=== PATIENT | male | born 1980 | race Caucasian/White ===

== ENCOUNTER 2024-04-14 11:28 | Emergency (ER) | payer OTHER, SELFPAY ==
[2024-04-14 11:28] VITALS: BMI 17.2
[2024-04-14 11:33] VITALS: BP 135/92
[2024-04-14 11:49] LABS: % Basophils 0.4 % (0-2); % Eosinophils 1.6 % (0-6); % Immature Granulocytes 0.3 % (0-0.5); % Lymphocytes 16.8 % (20.5-51.1); % Neutrophils 74.9 % (42.2-75.2); Absolute Eosinophils 0.2 10^3/uL (0-0.7); Absolute Lymphocytes 1.7 10^3/uL (1.2-3.4); Absolute Monocytes 0.6 10^3/uL (0.1-0.6); Absolute Neutrophils 7.6 10^3/uL (1.4-6.5); Hemoglobin 12.6 g/dL (13.0-18.0); Mean Corpuscular Hgb 31.3 pg (27.0-31.0); Mean Corpuscular Volume 89.3 fL (80.0-94.0); Mean Platelet Volume 9.7 fL (7.4-10.4); Nucleated Red Blood Cells % 0 % (-); Platelet Count 229 10^3/uL (130-400); Red Blood Cell Count 4.03 10^6/uL (4.70-6.10); Red Cell Dist. Width 12.5 % (11.5-14.5); White Blood Cell Count 10.2 10^3/uL (4.8-10.8)
[2024-04-14 12:06] LABS: ALT (SGPT) 18 U/L (0-50); AST (SGOT) 23 U/L (17-59); Alkaline Phosphatase 105 U/L (38-126); Blood Urea Nitrogen 11 mg/dl (9-20); Calcium 9.3 mg/dl (8.4-10.2); Carbon Dioxide 27 mmol/L (22-30); Chloride 102 mmol/L (98-107); Glucose 227 mg/dl (70-99); Potassium 4.2 mmol/L (3.5-5.1); Sodium 140 mmol/L (135-145); Total Bilirubin 0.4 mg/dl (0.2-1.3); Total Protein 6.4 g/dl (6.3-8.2); eGFR > 60.00
[2024-04-14 12:13] LABS: Troponin I < 0.012 ng/ml
[2024-04-14 12:31] VITALS: BP 151/80
[2024-04-14 12:35] VITALS: BP 151/80
[2024-04-14 13:02] VITALS: BP 116/71
[2024-04-14] MEDS: TORADOL 15 MG IV (13:09)
[2024-04-14 13:32] LABS: D-Dimer < 0.27 ug/mlFEU (0.00-0.50)
--- NOTE | 2024-04-14 14:35 | ED.GENMED ---
History of Present Illness
General
Chief Complaint: Breathing Problem
Source: patient
Exam Limitations: none
Time Seen by Provider: 04/14/24 12:38
Nursing documentation reviewed up to this point in time: agreed with
History of Present Illness
History of Present Illness:
43-year-old male with past medical history of insulin-dependent diabetes presents to the emergency room for evaluation of chest pain. Patient reports onset of symptoms about 4 days ago and have been constant since that time. He reports pain in the
left chest wall radiates towards the center. It is worse when he moves and it is worse with palpation. It is worse when he coughs or takes deep breath. He says that today pain was bad enough that he felt short of breath and so he came to the ER
to be evaluated. He says he has had rib fractures in the past on the left side and says that it felt similar although he denies any trauma. 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 He has had mild cough
recently. Nonproductive. No fevers or chills. No other complaints.
Past History
Past History
ED Past Medical History: IDDM
ED Past Surgical History: None
Social History
Tobacco: Smoker
Alcohol: Occasional
Drug: None
Personal:
Living: with family
Family History
Family History: Other (Diabetes, previous [place])
Review of Systems
Review of Systems
All Other Systems: ROS reviewed and negative except as documented in HPI and ROS
Constitutional: Denies fever or chills
Respiratory: Reports cough and trouble breathing
Cardiac: Reports chest pain; Denies diaphoresis or palpitations
ABD/GI: Denies abdominal pain, nausea or vomiting
: Denies flank pain
Musculoskeletal: Denies edema, neck pain or back pain
Neurological: Denies dizzy or headache
Phy Exam
Physical Exam
Physical Exam:
General: Awake, alert, oriented x3; no acute distress
Head: Normocephalic, atraumatic
Eyes: Conjunctiva normal, sclera anicteric
Throat: Airway intact, handling secretions
Neck: Trachea midline, supple without meningismus
Lungs: Clear to auscultation bilaterally, no wheezing, rales, rhonchi
Heart: Regular rate and rhythm, no murmurs, gallops, or rubs; reproducible rib tenderness left ribs 7 and 8 anterior axillary line
Abd: Soft, non distended, nontender
Neuro: No gross deficits
Skin: no rash
Extremities: No edema in extremities, equal pulses in all extremities
Scores
Heart Failure Risk
Heart Failure Risk Score: Not Applicable
Heart Score for Chest Pain Patients
STEMI patient?: Not applicable
Withdrawal Assessment of Alcohol
Withdrawal Assessment Completed?: Not applicable
Course
Orders/Labs/Results
Orders:
Orders
04/14/24 11:29
Electrocardiogram (*1) Urgent
Reason for Study: Shortness of Breath
EKG- Treatment ONCE
04/14/24 11:41
Complete Blood Count/With Diff Urgent
Comprehensive Metabolic Panel Urgent
Troponin I Urgent
04/14/24 12:39
CR Chest - 2 Views Urgent
Comment:
Reason For Exam: sob, chest pain
04/14/24 12:46
Ketorolac [Toradol] 15 mg IV NOW STA
04/14/24 13:03
D-Dimer Urgent
Abnormal Lab Results
04/14/24
11:41
RBC 4.03 L 10^6/uL
(4.70-6.10)
Hgb 12.6 L g/dL
(13.0-18.0)
Hct 36.0 L %
(39.0-52.0)
MCH 31.3 H pg
(27.0-31.0)
Absolute Neuts (auto) 7.6 H 10^3/uL
(1.4-6.5)
Lymphocytes % 16.8 L %
(20.5-51.1)
Glucose 227 H mg/dl
(70-99)
04/14/24 11:41
04/14/24 11:41
Vital Signs
Initial and Last Documented VS:
Initial Vital Signs
Temp Pulse Resp BP Pulse Ox
36.4 C 87 20 135/92 100
04/14/24 11:33 04/14/24 11:33 04/14/24 11:33 04/14/24 11:33 04/14/24 11:33
Last Documented Vital Signs
Temp Pulse Resp BP Pulse Ox
36.8 C 68 16 151/80 99
04/14/24 12:35 04/14/24 12:35 04/14/24 12:35 04/14/24 12:35 04/14/24 12:38
MDM/Problems Addressed
Differential Diagnosis Includes:
Costochondritis, rib fracture, pneumothorax, pneumonia, bronchitis, PE, ACS considered less likely clinically
MDM/Problems Addressed:
43-year-old male presents for evaluation of left-sided chest/rib pain as described above. Ongoing for 4 days. Denies any specific trauma but does do regular heavy lifting. Hypertensive but otherwise normal vitals. Physical exam as above.
Notably reproducible chest wall tenderness in the area of complaint. No rash. EKG in triage shows no STEMI or acute ischemic changes. He had lab work sent in triage including a CBC which showed marginal anemia. He had a CMP which showed
hyperglycemia in the setting of known diabetes�he has has insulin pump. His troponin was undetectable. Added D-dimer. Check chest x-ray. Reassess after the above.
D-dimer negative. Chest x-ray shows no acute disease�no pneumothorax, no visual rib fractures. Patient was treated with Toradol had some improvement. Could be minor nondisplaced rib fracture/occult fracture versus costochondritis�my clinician is
more towards costochondritis given lack of traumatic injury. Stable for discharge will trial NSAIDs. Patient comfortable to this. All questions answered.
*Radiology
Radiology exam reviewed: radiology read reviewed
*Pulse Oximetry
Patient hypoxic: no
*EKG
Interpreted by ED Provider?: Yes
Heart Rate: 76
Rate: normal
Rhythm: sinus
[place]: normal axis
Interval: normal interval
QRS Pattern: normal QRS
Ischemia: no ischemia
*Critical Care Note
Total Time (30-74mins, 75-104mins- exclusive of procedures): Not Applicable
Data Reviewed
Source: patient and records
Further Testing Considered But Not Given:
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
ED Attending Note
-
Portions of this chart may have been created with voice recognition software.� Occasional wrong word or��sound alike� substitutions may have occurred due to the inherent limitations of voice recognition software.
Discharge Plan
Departure
Patient Disposition: Home (Routine Discharge)
Date of Disposition: 04/14/24
Time of Disposition: 14:30
Patient with high blood pressure during this ER visit?: Yes
Discharge Problem:
Chest pain
Instructions: Costochondritis
Prescriptions:
New
ibuprofen 600 mg tablet
600 mg PO Q6H PRN (Reason: Pain) 7 Days Qty: 30 0RF
No Action
insulin glargine [Lantus U-100 Insulin] 1,000 UNITS/10 ML solution
25 units SC HS
insulin lispro [Humalog U-100 Insulin] 100 UNIT/ML solution
0 unit SC .BEFORE MEALS PRN
Patient Comments:
SSC
metronidazole 500 MG tablet
500 mg PO TID Qty: 21 0RF
pantoprazole 40 mg tablet,delayed release (DR/EC)
40 mg PO DAILY Qty: 30 0RF
sucralfate [Carafate] 100 mg/mL suspension
10 ml PO ACHS Qty: 1000 0RF
Referrals:
NONE,* [Family Provider] -
Activity Restrictions/Additional Instructions:
Thank you for visiting the Emergency Department at [facility].
1. Please schedule a follow up appointment as directed. Call first thing tomorrow morning to make an appointment.
2. If indicated, please take your medications as instructed and indicated on discharge paperwork.
3. If any of your symptoms do not improve, or persist, or become more severe within 6-12 hours, please return to the emergency department for further care.
4. Please return to the emergency department if you develop a headache, neck pain/stiffness, fever greater than 100.4F, chest pain, shortness of breath, persistent nausea, vomiting, slurred speech, difficulty walking, numbness/tingling, weakness,
signs of infection or any other symptoms that are worrisome to you.
Please call [phone] if you have any questions.
Interventions
Interventions:
*Risk Screen - Suicide Last Done: 04/14/24 11:33
*General Assessment Last Done: 04/14/24 11:33
*Neglect/Abuse Screening Last Done: 04/14/24 11:33
*ED COVID-19 Vaccine History Last Done: 04/14/24 11:33
XA-Ilbjjb-Oxgxqpgcsc Assessment Last Done: 04/14/24 12:38
ED- Cardiac Assessment Last Done: 04/14/24 12:38
ED-Male Genitourinary Assessment Last Done: 04/14/24 12:38
ED- Pulmonary Assessment Last Done: 04/14/24 12:38
Discharge Date and Time
Print Language: GEORGIAN
== END 2024-04-14 14:44 | disposition home or self-care (01) ==
LOC: EMR 11:28
PROVIDERS: Emergency Medicine; EMERGENCY PHYSICIAN Emergency Medicine
DX: R07.89 Other chest pain (principal); E11.65 Type 2 diabetes mellitus with hyperglycemia; D64.9 Anemia, unspecified; Z79.4 Long term (current) use of insulin; Z96.41 Presence of insulin pump (external) (internal); F17.200 Nicotine dependence, unspecified, uncomplicated
CPT/HCPCS: 96374; 99284; 71046; 80053; 84484; 85025; 85379; 93005

== ENCOUNTER 2025-05-03 00:11 | Emergency (ER) | payer SELFPAY ==
[2025-05-03 00:13] VITALS: BP 112/80
[2025-05-03 00:20] LABS: Glucose - Point of Care 357 mg/dl (70-99)
[2025-05-03 00:23] VITALS: BP 114/72
[2025-05-03 00:30] VITALS: BP 116/72
[2025-05-03 00:42] VITALS: BMI 18.4
[2025-05-03 00:44] LABS: Hematocrit 35.1 % (39.0-52.0); Hemoglobin 12.4 g/dL (13.0-18.0); Mean Corp Hgb Conc. 35.3 g/dL (33.0-37.0); Mean Corpuscular Volume 90.5 fL (80.0-94.0); Nucleated Red Blood Cells % 0 % (-); Platelet Count 245 10^3/uL (130-400); Red Cell Dist. Width 12.7 % (11.5-14.5)
[2025-05-03] MEDS: NSS 1000 IV (00:57)
[2025-05-03 01:00] VITALS: BP 113/73
[2025-05-03 01:04] LABS: ALT (SGPT) 30 U/L (0-50); AST (SGOT) 49 U/L (17-59); Albumin 4.5 g/dl (3.5-5.0); Alkaline Phosphatase 80 U/L (38-126); Blood Urea Nitrogen 15 mg/dl (9-20); Calcium 9.4 mg/dl (8.4-10.2); Carbon Dioxide 19 mmol/L (22-30); Chloride 103 mmol/L (98-107); Estimated Creatinine Clearance 106 ml/min; Glucose 372 mg/dl (70-99); Potassium 4.2 mmol/L (3.5-5.1); Sodium 135 mmol/L (135-145); Total Protein 7.2 g/dl (6.3-8.2); eGFR > 60.00
[2025-05-03 01:06] LABS: Venous Blood Gas B.E. -2.4 mmol/L (-4 to +4); Venous Blood Gas O2 Sat % 99.6 %
[2025-05-03 01:19] LABS: Venous Blood Gas O2 Therapy ROOM AIR
[2025-05-03 01:30] VITALS: BP 109/59
[2025-05-03] MEDS: NOVOLIN R 6 UNITS SC (01:54)
--- NOTE | 2025-05-03 01:59 | ED.GENMED ---
History of Present Illness
General
Chief Complaint: Blood Sugar Problem
Source: patient and spouse
Time Seen by Provider: 05/03/25 00:29
History of Present Illness
History of Present Illness:
44-year-old male presents emergency room for evaluation of hyperglycemia. Patient has type 1 diabetes for which he typically has a insulin pump. With his insulin pump he is able to obtain tight control. Patient was at work earlier today when he
noticed his pump battery was getting low. He removed the pump to weigher and charger for short period of time and inadvertently forgot he did not have his pump on. He left work and went out with friends where he had some drinks and for ODs. He began to feel
unwell like he does when his sugar is high. He took his sugar and it was in the 500s. He administered some subcu short acting insulin with improvement of his sugar initially but it started to creep back up prompting him to come to the emergency
room. Patient feels mildly nauseous but has not vomited. He feels dry.
Past History
Past History
ED Past Medical History: IDDM
ED Past Surgical History: None
Social History
Tobacco: Smoker
Alcohol: Occasional
Drug: None
Personal:
Living: with family
Family History
Family History: Other (Diabetes, previous [place])
Phy Exam
Physical Exam
Physical Exam:
General: Awake, Alert, Oriented X3. No acute distress.
Vitals: unremarkable
Head: Atraumatic
Eyes: Pupils equal, EOMI
Throat: Airway intact, no exudates
Neck: Trachea midline
Lungs: Clear and equal b/l
Heart: Regular rate, no murmurs
Abd: Soft, Nontender, No pulsatile mass
Neuro: Nonfocal
Skin: Warm, dry, no rash
Extremities: pulses equal b/l, no edema
Course
Orders/Labs/Results
Orders:
Orders
05/03/25 00:34
B-Hydroxybutyrate Urgent
Comment: ADDED
Complete Blood Count/With Diff Urgent
Comprehensive Metabolic Panel Urgent
05/03/25 00:51
0.9% Sodium Chloride 1000 ml [Nss] 1,000 ml IV BOLUS
05/03/25 00:53
Add On- LAB Urgent
Tests Added?: beta hydroxybuterate
05/03/25 00:58
Venous Blood Gas Urgent
%Oxygen/Room Air: ra
05/03/25 01:33
Insulin Human Regular [Novolin R] 6 units SC NOW STA
Abnormal Lab Results
05/03/25 05/03/25 05/03/25
00:18 00:34 00:58
RBC 3.88 L 10^6/uL
(4.70-6.10)
Hgb 12.4 L g/dL
(13.0-18.0)
Hct 35.1 L %
(39.0-52.0)
MCH 32.0 H pg
(27.0-31.0)
VBG pCO2 34 L mmHg
(35-48)
VBG pO2 174 H mmHg
(30-50)
VBG HCO3 21.6 L mmol/L
(22-27)
Carbon Dioxide 19 L mmol/L
(22-30)
Glucose 372 H mg/dl
(70-99)
B-Hydroxybutyrate 0.42 H mmol/L
(0.02-0.27)
POC Glucose 357 H mg/dl
(70-99)
05/03/25
02:01
RBC
Hgb
Hct
MCH
VBG pCO2
VBG pO2
VBG HCO3
Carbon Dioxide
Glucose
B-Hydroxybutyrate
POC Glucose 276 H mg/dl
(70-99)
05/03/25 00:34
05/03/25 00:34
Vital Signs
Initial and Last Documented VS:
Initial Vital Signs
Temp Pulse Resp BP Pulse Ox
97.9 F 87 16 112/80 97
05/03/25 00:13 05/03/25 00:13 05/03/25 00:13 05/03/25 00:13 05/03/25 00:13
Last Documented Vital Signs
Temp Pulse Resp BP Pulse Ox
97.9 F 70 13 104/70 96
05/03/25 00:13 05/03/25 02:15 05/03/25 02:15 05/03/25 02:00 05/03/25 02:15
MDM/Problems Addressed
Differential Diagnosis Includes:
Medication noncompliance, hyperglycemia, DKA
MDM/Problems Addressed:
Patient presents with hyperglycemia secondary to insulin. No evidence of DKA here on testing. Will give an additional dose of subcu insulin the patient is going to go to his workplace where he has keys to get into the shop and can get his insulin
pump.
*Pulse Oximetry
SaO2: 96
Oxygen Mode of Delivery: Room air
Patient hypoxic: no
*Critical Care Note
Total Time (30-74mins, 75-104mins- exclusive of procedures): Not Applicable
ED Attending Note
-
Portions of this chart may have been created with voice recognition software.� Occasional wrong word or��sound alike� substitutions may have occurred due to the inherent limitations of voice recognition software.
Discharge Plan
Departure
Patient Disposition: Home (Routine Discharge)
Date of Disposition: 05/03/25
Time of Disposition: 01:59
Patient with high blood pressure during this ER visit?: No
Condition: Good
Discharge Problem:
Acute hyperglycemia
Instructions: Diabetes Type 1, Adult (DC)
Prescriptions:
No Action
insulin glargine [Lantus U-100 Insulin] 1,000 UNITS/10 ML solution
25 units SC HS
insulin lispro [Humalog U-100 Insulin] 100 UNIT/ML solution
0 unit SC .BEFORE MEALS PRN
Patient Comments:
SSC
metronidazole 500 MG tablet
500 mg PO TID Qty: 21 0RF
pantoprazole 40 mg tablet,delayed release (DR/EC)
40 mg PO DAILY Qty: 30 0RF
sucralfate [Carafate] 100 mg/mL suspension
10 ml PO ACHS Qty: 1000 0RF
ibuprofen 600 mg tablet
600 mg PO Q6H PRN (Reason: Pain) 7 Days Qty: 30 0RF
Referrals:
Dionna Guzman MD [Family Provider, Family Practice]
Interventions
Interventions:
*Risk Screen - Suicide Last Done: 05/03/25 00:13
*General Assessment Last Done: 05/03/25 00:29
*Neglect/Abuse Screening Last Done: 05/03/25 00:29
*ED- Fall Risk Assessment Last Done: 05/03/25 00:29
*ED COVID-19 Vaccine History Last Done: 05/03/25 00:29
*ED Influenza Vaccine History Last Done: 05/03/25 00:29
*Nursing Disposition Last Done: 05/03/25 02:26
ED- Neurological Assessment Last Done: 05/03/25 00:29
Discharge Date and Time
Discharge Date/Time: 05/03/25 02:26
Print Language: [id number]
[2025-05-03 02:00] VITALS: BP 104/70
[2025-05-03 02:02] LABS: Glucose - Point of Care 276 mg/dl (70-99)
== END 2025-05-03 02:26 | disposition home or self-care (01) ==
LOC: EMR 00:11
PROVIDERS: EMERGENCY PHYSICIAN Emergency Medicine; FAMILY PHYSICIAN Family Medicine
DX: E10.65 Type 1 diabetes mellitus with hyperglycemia (principal); F17.200 Nicotine dependence, unspecified, uncomplicated; Z79.4 Long term (current) use of insulin; Z96.41 Presence of insulin pump (external) (internal); Z83.3 Family history of diabetes mellitus
CPT/HCPCS: 99284; 96360; 96372; 80053; 82010; 82805; 82962; 85025